=== PATIENT | female | born 1970 | race Caucasian/White ===

== ENCOUNTER → 2025-07-01 12:46 | Outpatient (REF) | payer OTHER, SELFPAY | LOC: EMG 12:46 | PROVIDERS: ATTENDING PHYSICIAN Specialist; FAMILY PHYSICIAN Family Medicine | DX: M46.02 Spinal enthesopathy, cervical region (principal); G57.11 Meralgia paresthetica, right lower limb; G56.03 Carpal tunnel syndrome, bilateral upper limbs; R20.0 Anesthesia of skin | CPT/HCPCS: 95886; 95910 ==